=== PATIENT | male | born 1980 | race Caucasian/White ===

== ENCOUNTER → 2019-03-26 11:11 | Outpatient (CLI) | payer SELFPAY ==
[2019-03-26 11:23] VITALS: BP 123/80; PULSE 72; RESP 14; TEMP 36.8; BMI 31.1
--- NOTE | 2019-03-26 11:55 | HTC.HP3 ---
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 History of Present Illness: 38y.o.man with Hemophilia B, comes for follow up. He used one replacement treatment-33263 units for L hip pain. Health History: Past Medical History (Last Updated 03/26/19 @ 11:22 by Rosmery Cuellar) Petit mal (Acute) Hemophilia (Acute) Allergies/Adverse Reactions: Allergy/AdvReac Type Severity Reaction Status Date / Time aspirin [ASA] AdvReac Other Verified 03/27/18 09:44 Risk Factors Social History Smoking Status Former smoker Tobacco Risk Data: Tobacco Risk Smoking Status Former smoker Type of tobacco: Smokeless tobacco usage: Items/Day: Year started: Years used: Counseled to quit/cut down: Reason for no counseling performed: Reason for no pharmacotherapy: Tobacco use comments: Passive smoke exposure: Substance Risk Drug use: No Caffeine use [drinks/day]: Alcohol use: No Type of alcohol: Drinks per day: Has patient felt the need to cut down: Has the patient been annoyed by complaints: Has the patient felt guilty about drinking: 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: Comments: Review of Systems Constitutional:: Denies: Fever, Sweats, Weight loss, Appetite change, Chills Cardiovascular:: Denies: Chest pain, Palpitations, Dyspnea on exertion, Orthopnea, PND, Shortness of breath Respiratory: Denies: Cough, Hemoptysis, Shortness of Breath, Wheezing Gastrointestinal:: Denies: Abdominal pain, Nausea, Vomiting, Diarrhea, Constipation, Hematochezia Genitourinary: Denies: Dysuria, Hematuria, 15, Flank pain Musculoskeletal:: Denies: Back pain, Myalgia, Arthralgia Skin: Denies: Rash, Skin Changes, Wounds Neurological:: Denies: Headache, Dizziness, Visual changes, Tinnitus, Hearing loss Psychiatric: Denies: Anxiety, Depression, Homicidal Ideations, Suicidal Ideations Vital Signs Height 6 ft 3.5 in Weight: 114.305 kg Weight in Pounds 252.0 lbs Temperature 98.3 F Pulse Rate 72 Respiratory Rate 14 Blood Pressure 123/80 Blood Pressure Position Sitting - Physical Exam General: Alert, Oriented x3, No apparent distress HEENT: Atraumatic, PERRLA, EOMI, Normocephalic Oropharynx:: Dry mucosa Neck:: Supple, Trachea midline. Negative for: JVD, bilateral Cardiac:: Regular rate, Regular rhythm, Normal S1, Normal S2. Negative for: Murmur Lungs: Clear to auscultation, Excusion symmetrical. Negative for: Rhonchi, Wheezes Abdomen:: Bowel sounds x 4, Soft, Non-tender, Non-distended. Negative for: Hepatosplenomegaly Extremities:: Negative for: Cyanosis, Edema Neurological: Neuro grossly intact Skin:: Negative for: Lesions, Rash, Petechiae, Ecchymosis Psychiatric:: Appropriate affect, Euthymic Lymphatics:: Negative for: Cervical lymphadenopathy, Supraclavicular lymphadenopathy, Axillary lymphadenopathy Therapy ROM Screening - Subjective Subjective:: Pt states he is doing ok- no concerns- - Objective Right shoulder flex:: 165 Left shoulder flex:: 165 Right shoulder extension:: 50 Left shoulder extension:: 50 Right elbox flex/ext:: 145 Left elbox flex/ext:: 145 Right elbow circumference:: 29cm Left elbow circumference:: 29cm Right forearm sup/pron:: WNL Left forearm sup/pron:: WNL Right knee flexion:: 120 Left knee flexion:: 120 Right knee circumference:: 41cm Left knee circumference:: 42cm Right ankle dorsiflexion:: 20 Left ankle dorsiflexion:: 20 Right ankle Plan-flex:: 45 Left ankle Plan-flex:: 45 Right ankle circumference:: 26cm Left ankle circumference:: 26cm Right hip flexion:: 90 Left hip flexion:: 90 Right hip extension:: 20 Left hip extension:: 20 - Assessment Assessment:: Pt demo all ROM WNL no concerns at this time. Assessment and Plan Hemophilia B, clinically stable. Plan is to continue Expectant management with factor replacement as needed. RTC 1 yr. Primary Care Provider: Out of Town Doctor Referring Provider: Emigdio Mcfarlane MD
== END ==
PROVIDERS: Visit Provider Internal Medicine Medical Oncology
DX: D67 Hereditary factor IX deficiency (principal)